=== PATIENT | female | born 1970 | race Caucasian/White ===

== ENCOUNTER 2019-03-10 21:36 | Emergency (ER) | payer OTHER ==
[2019-03-10 21:46] VITALS: BP 144/93; TEMP 98.5; BMI 25.5
[2019-03-10] MEDS ORDERED: KETOROLAC TROMETHAMINE 60 MG/2 ML VIAL IM ONE (21:55)
[2019-03-10] MEDS ORDERED: KETOROLAC TROMETHAMINE 60 MG/2 ML VIAL ONE (21:56)
--- NOTE | 2019-03-10 22:22 | PDOC ---
Documentation entered by Arlyn Johnson SCRIBE, acting as scribe for Jordan Friedman MD. Jordan Friedman MD: This documentation has been prepared by the Alex whyte Adrianna, SCRIBE, under my direction and personally reviewed by me in its entirety. I confirm that the documentation accurately reflects all work, treatment, procedures, and medical decision making performed by me. History of Present Illness - General Chief Complaint: Pain Stated Complaint: LEFT ARM, LEFT SHOULDER, NECK PAIN Time Seen by Provider: 03/10/19 21:44 - History of Present Illness Initial Comments: The patient is a 56 year old female, with a significant PMH of antiphospholipid syndrome, who presents to the ED for evaluation of LUE pain for 5 days. Patient notes she began experiencing left bicep pain 5 days ago, which has been progressively worsening and radiating down her left arm as well as into the left shoulder and neck. She describes the pain as intermittent and sharp- shooting. Patient notes that her pain is exacerbated with reaching overhead, reaching behind the back, turning the head from side to side (R>L), or when sleeping on her left side. She endorses weakness of the LUE and some numbness that began this morning and self-resolved. Patient notes no change in symptoms when palpating the left upper extremity. She reports doing an exercise class 6 days ago, but normally does this class without any complaints. Patient has tried taking Tylenol with some relief of symptoms. Allergies: NKA, NKDA Surgical History: Hysterectomy, right knee surgery, polyp removed from the vocal cords Social History: Denies EtOH, tobacco, or illicit drug use PCP: none (referred to Filippo Booker) Past History - Past Medical History Allergies/Adverse Reactions: Allergies Allergy/AdvReac Type Severity Reaction Status Date / Time No Known Allergies Allergy Verified 03/10/19 21:41 Home Medications: Ambulatory Orders Aspirin [Aspirin EC] 81 mg PO DAILY 03/10/19 COPD: No - Immunization History Immunization Up to Date: No - Suicide/Smoking/Psychosocial Hx Smoking History: Never smoked Have you smoked in the past 12 months: No Information on smoking cessation initiated: No Hx Alcohol Use: No Drug/Substance Use Hx: No Review of Systems - Review of Systems Comments:: GENERAL/CONSTITUTIONAL: No fever or chills. HEAD, EYES, EARS, NOSE AND THROAT: No change in vision. No ear pain or discharge. No sore throat. CARDIOVASCULAR: No chest pain or shortness of breath. RESPIRATORY: No cough, wheezing, or hemoptysis. GASTROINTESTINAL: No nausea, vomiting, diarrhea or constipation. GENITOURINARY: No dysuria, frequency, or change in urination. MUSCULOSKELETAL: +LUE pain that began in the left bicep and radiates down the arm to the left hand. +Left shoulder pain. +Left-sided neck pain. +Muscle weakness of the LUE. No joint or muscle swelling. No back pain. SKIN: No rash NEUROLOGIC: +One self-resolved episode of numbness of the LUE. No headache, vertigo, loss of consciousness. ENDOCRINE: No increased thirst. No abnormal weight change. HEMATOLOGIC/LYMPHATIC: No anemia, easy bleeding, or history of blood clots. ALLERGIC/IMMUNOLOGIC: No hives or skin allergy. *Physical Exam - Vital Signs Last Vital Signs Temp Pulse Resp BP Pulse Ox 98.5 F 115 H 18 144/93 100 03/10/19 21:42 03/10/19 21:42 03/10/19 21:42 03/10/19 21:42 03/10/19 21:42 - Physical Exam Comments: GENERAL: Awake, alert, and fully oriented, in no acute distress HEAD: No signs of trauma EYES: PERRLA, EOMI, sclera anicteric, conjunctiva clear ENT: Auricles normal inspection, hearing grossly normal, nares patent, oropharynx clear without exudates. Moist mucosa NECK: Normal ROM, supple, no lymphadenopathy, JVD, or masses LUNGS: Breath sounds equal, clear to auscultation bilaterally. No wheezes, and no crackles HEART: Regular rate and rhythm, normal S1 and S2, no murmurs, rubs or gallops ABDOMEN: Soft, nontender, normoactive bowel sounds. No guarding, no rebound. No masses EXTREMITIES: +Tenderness to palpation over the left trapezius. +Tender with abduction and adduction of the left upper extremity. Normal edema. No clubbing or cyanosis. No cords or erythema. NEUROLOGICAL: Alert, awake, appropriate. Cranial nerves 2-12 intact. No deficits to light touch and temperature in upper extremities and lower extremities. No motor deficits in the upper extremities and lower extremities. Normoreflexic in the upper and lower extremities. Normal speech. Gait is normal without ataxia. SKIN: Warm, Dry, normal turgor, no rashes or lesions noted. Heart Score/ECG Review - ECG Impressions Comment:: Sinus rhythm at 100. Normal axis, normal interval, no ischemic findings. Medical Decision Making - Medical Decision Making 03/11/19 06:47 hr [id number] msk pain no evidence of infection ? radiculopathy r to ED for progression of symptoms nsaids *DC/Admit/Observation/Transfer Diagnosis at time of Disposition: Muscle strain - Discharge Dispostion Disposition: HOME - Referrals Referrals: Oswaldo Singh MD [Staff Physician] - Call tomorrow - Patient Instructions Printed Discharge Instructions: Muscle Strain Additional Instructions: Please follow-up with an automatic nailing machine feeder for persistent symptoms - Post Discharge Activity
[2019-03-10 22:56] VITALS: PULSE 100
--- NOTE | 2019-03-11 17:07 | EKG ---
Test Reason : Blood Pressure : / mmHG Vent. Rate : 100 BPM Atrial Rate : 100 BPM P-R Int : 152 ms QRS Dur : 090 ms QT Int : 334 ms P-R-T Axes : 055 038 057 degrees QTc Int : 430 ms NORMAL SINUS RHYTHM NORMAL ECG NO PREVIOUS ECGS AVAILABLE Confirmed by MD WIL, WOLF ([id number]) on 03/11/2019 5:07:07 PM Referred By: JOSE ANTONIO JESUS Confirmed By:WOLF DE LA TORRE MD
== END 2019-03-10 22:56 | disposition home or self-care (01) ==
LOC: FER 21:36
PROC: 3E0233Z Introduction of Anti-inflammatory into Muscle, Percutaneous Approach (ICD-10-PCS; principal; 2019-03-10)
DX: S46.912A Strain of unspecified muscle, fascia and tendon at shoulder and upper arm level, left arm, initial encounter (principal); X58.XXXA Exposure to other specified factors, initial encounter; Y93.9 Activity, unspecified; Y92.9 Unspecified place or not applicable
CPT/HCPCS: 93005; 99282-25

== ENCOUNTER 2019-03-12 13:00 | Emergency (ER) | payer OTHER | END 2019-03-12 13:50 | disposition home or self-care (01) | LOC: FER 13:00 ==